=== PATIENT | male | born 1965 | race Caucasian/White ===

== ENCOUNTER 2018-02-13 10:46 | Observation (INO) | payer BC ==
[2018-02-13] MEDS ORDERED: Sodium Chloride 0.9% 1,000 ML IV STA (11:22)
[2018-02-13] MEDS ORDERED: HYDROmorphone 1 MG/ML Syringe IVPUSH ONE (11:23)
--- NOTE | 2018-02-13 11:30 | EDM.PDOC ---
ED HPI GENERAL MEDICAL PROBLEM - General Chief Complaint: Lower Extremity Injury/Pain Stated Complaint: LEFT LEG SWELLING Time Seen by Provider: 02/13/18 11:22 Source of Information: Reports: Patient History Limitations: Reports: No Limitations - History of Present Illness INITIAL COMMENTS - FREE TEXT/NARRATIVE: Patient is a 52-year-old gentleman who presents to the emergency department this morning with a complaint of left lower extremity pain and chronic diarrhea. Patient states that he initially was diagnosed with cellulitis of left lower extremity 1 month ago and was started on antibiotics. Patient was found to have C. difficile on February 08. He was then started on vancomycin. Patient states that he chronic discomfort of left lower extremity and diarrhea is persistent, and he feels extremely weak. He is a [facility] Patient. Patient denies fever, chest pain, shortness of breath,, stiff neck, out of country travel, or any change in medication other than recent vancomycin initiation. 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 Patient is also has PICC line for another unknown antibiotic.) Left Lower Leg Pain Score (Numeric/FACES): 10 - Related Data Allergies Allergy/AdvReac Type Severity Reaction Status Date / Time No Known Drug Allergies Allergy Cannot Verified 02/13/18 11:07 Remember Home Meds: Home Meds Celecoxib 200 mg PO DAILY 02/13/18 [History] Furosemide 20 mg PO DAILY 02/13/18 [History] Lisinopril 20 mg PO DAILY 02/13/18 [History] Vancomycin HCl 125 mg PO QID 02/13/18 [History] oxyCODONE 10 mg PO ASDIRECTED 02/13/18 [History] traZODone HCl [Trazodone HCl] 50 mg PO QAM 02/13/18 [History] Review of Systems - Review of Systems Review Of Systems: ROS reveals no pertinent complaints other than HPI. Constitutional: Reports: Weakness Eyes: Reports: No Symptoms Ears: Reports: No Symptoms Nose: Reports: No Symptoms Mouth/Throat: Reports: No Symptoms Respiratory: Reports: No Symptoms Cardiovascular: Reports: No Symptoms GI/Abdominal: Reports: Diarrhea. Denies: Nausea, Vomiting Genitourinary: Reports: No Symptoms Musculoskeletal: Reports: Leg Pain (Left lower) Skin: Reports: Erythema (Persistent secondary to cellulitis of left lower extremity from knee distal to ankle.) Neurological: Reports: No Symptoms Psychiatric: Reports: No Symptoms ED EXAM, GENERAL - Physical Exam Exam: See Below Exam Limited By: No Limitations General Appearance: Alert, WD/WN, No Apparent Distress Nose: Normal Inspection, Normal Mucosa, No Blood Throat/Mouth: Normal Inspection, Normal Oropharynx, No Airway Compromise Head: Atraumatic, Normocephalic Neck: Normal Inspection Respiratory/Chest: No Respiratory Distress, Lungs Clear, Normal Breath Sounds, No Accessory Muscle Use, Chest Non-Tender Cardiovascular: Regular Rate, Rhythm GI/Abdominal: Normal Bowel Sounds, Soft, Tender (Mildly tender left lower quadrant. Patient states that this is not a new discomfort.) Back Exam: Normal Inspection. No: CVA Tenderness (L), CVA Tenderness (R) Extremities: Leg Pain, Other (Left lower extremity from just below knee distal to ankle and medial aspect color changes with resolving cellulitis.) Neurological: Alert, Oriented, Normal Cognition Psychiatric: Normal Affect, Normal Mood Skin Exam: Warm, Dry, Intact. No: Ecchymosis, Increased Warmth, Zoster-Like Rash Lymphatic: No Adenopathy Course - Vital Signs Last Recorded V/S: Last Vital Signs Temp 98.6 F 02/13/18 11:04 Pulse 66 02/13/18 11:04 Resp 18 02/13/18 11:04 BP 160/89 H 02/13/18 11:04 Pulse Ox 100 02/13/18 11:04 - Orders/Labs/Meds Orders: Active Orders 24 hr Category Date Time Status CBC WITH AUTO DIFF [HEME] Stat Lab 02/13/18 11:22 Ordered COMPREHENSIVE METABOLIC PN,CMP [CHEM] Stat Lab 02/13/18 11:22 Ordered HYDROmorphone [Dilaudid] Med 02/13/18 11:23 Once 0.5 mg IVPUSH ONETIME ONE Sodium Chloride 0.9% [Normal Saline] 1,000 ml Med 02/13/18 11:22 Ordered IV .BOLUS Medication Orders Hydromorphone HCl (Dilaudid) 0.5 mg IVPUSH ONETIME ONE Stop: 02/13/18 11:24 Sodium Chloride (Normal Saline) 1,000 mls @ 1,000 mls/hr IV .BOLUS STA Stop: 02/13/18 12:21 Meds: Medications Generic Name Dose Route Start Last Admin Trade Name Adelaide PRN Reason Stop Dose Admin Hydromorphone HCl 0.5 mg 02/13/18 11:23 Dilaudid IVPUSH 02/13/18 11:24 ONETIME ONE Sodium Chloride 1,000 mls @ 1,000 mls/hr 02/13/18 11:22 Normal Saline IV 02/13/18 12:21 .BOLUS STA - Re-Assessments/Exams Free Text/Narrative Re-Assessment/Exam: 02/13/18 12:27 Patient afebrile, nontoxic appearing, vital signs stable. Pain controlled. Discussed case with Mary Jansen, nurse practitioner, and patient will be admitted for observation to [facility] and followed Departure - Departure Time of Disposition: 12:28 Disposition: Refer to Observation Condition: Fair Clinical Impression: Hyperglycemia, Dehydration, C. difficile diarrhea - Discharge Information Referrals: Jacek Colunga PA-C [Primary Care Provider] - - My Orders Last 24 Hours: My Active Orders 02/13/18 11:22 CBC WITH AUTO DIFF [HEME] Stat COMPREHENSIVE METABOLIC PN,CMP [CHEM] Stat Sodium Chloride 0.9% [Normal Saline] 1,000 ml IV .BOLUS 02/13/18 11:23 HYDROmorphone [Dilaudid] 0.5 mg IVPUSH ONETIME ONE - Assessment/Plan Last 24 Hours: My Active Orders 02/13/18 11:22 CBC WITH AUTO DIFF [HEME] Stat COMPREHENSIVE METABOLIC PN,CMP [CHEM] Stat Sodium Chloride 0.9% [Normal Saline] 1,000 ml IV .BOLUS 02/13/18 11:23 HYDROmorphone [Dilaudid] 0.5 mg IVPUSH ONETIME ONE Assessment:: Hyperglycemia, dehydration, C. difficile Plan: Admit observation for [place]
[2018-02-13 12:16] LABS: CHLORIDE,CL 99 mmol/L (98-115); SODIUM,NA 133 mmol/L (136-145)
[2018-02-13] MEDS ORDERED: Sodium Chloride 0.9% 1,000 ML IV ONE (12:24)
[2018-02-13] MEDS ORDERED: Acetaminophen 500 MG Tab PO PRN (13:44)
[2018-02-13] MEDS ORDERED: Ibuprofen 400 MG Tab PO PRN (13:56)
--- NOTE | 2018-02-13 14:07 | PCM.HP ---
H&P History of Present Illness - General Date of Service: 02/13/18 Admit Problem/Dx: Admission Diagnosis/Problem Admission Diagnosis/Problem Hyperglycemia Source of Information: Patient, Old Records, Provider, RN History Limitations: Reports: No Limitations Left Lower Leg Pain Score (Numeric/FACES): 7 - Related Data Allergies/Adverse Reactions: Allergies Allergy/AdvReac Type Severity Reaction Status Date / Time No Known Drug Allergies Allergy Cannot Verified 02/13/18 11:07 Remember Home Medications: Home Meds Celecoxib 200 mg PO DAILY 02/13/18 [History] Furosemide 20 mg PO DAILY 02/13/18 [History] Lisinopril 20 mg PO DAILY 02/13/18 [History] Vancomycin HCl 125 mg PO QID 02/13/18 [History] oxyCODONE 10 mg PO ASDIRECTED 02/13/18 [History] traZODone HCl [Trazodone HCl] 50 mg PO QAM 02/13/18 [History] Past Medical History HEENT History: Reports: Impaired Vision Cardiovascular History: Reports: Hypertension Gastrointestinal History: Reports: Chronic Diarrhea Endocrine/Metabolic History: Reports: Diabetes, Type I - Infectious Disease History Infectious Disease History: Reports: C-Difficile, Chicken Pox - Past Surgical History HEENT Surgical History: Reports: Tonsillectomy Cardiovascular Surgical History: Reports: None GI Surgical History: Reports: Colonoscopy Endocrine Surgical History: Reports: None Musculoskeletal Surgical History: Reports: Arthroscopic Knee Social & Family History - Family History Cardiac: Reports: Hypertension (Father) Neurological: Reports: CVA (Maternal Grandmother) Endocrine/Metabolic: Reports: Diabetes, type II (Brother) Oncologic: Reports: Lung, Other (See Below) Other Oncologic Family History: mother - Tobacco Use Smoking Status *Q: Current Every Day Smoker Years of Tobacco use: 40 Packs/Tins Daily: 0.5 Used Tobacco, but Quit: No Second Hand Smoke Exposure: Yes - Caffeine Use Caffeine Use: Reports: Soda Other Caffeine Use: diet - Recreational Drug Use Recreational Drug Use: No - Living Situation & Occupation Living situation: Reports: , Other (Lives with son) Occupation: Employed H&P Review of Systems - Review of Systems: Review Of Systems: See Below General: Reports: Chills (always cold). Denies: Fever HEENT: Reports: Glasses. Denies: Ear Pain, Headaches, Sinus Congestion, Sore Throat Pulmonary: Reports: Cough (occasional). Denies: Shortness of Breath Cardiovascular: Denies: Chest Pain, Edema, Lightheadedness Gastrointestinal: Reports: Diarrhea (15 liquid stools with no stool consistency in last 12 hours). Denies: Abdominal Pain, Constipation, Decreased Appetite, Nausea, Vomiting Genitourinary: Reports: No Symptoms Musculoskeletal: Reports: Leg Pain (Left lower leg pain) Skin: Reports: Erythema (Improved). Denies: Wound Psychiatric: Denies: Agitation, Cravings Neurological: Denies: Dizziness, Headache Exam - Exam Exam: See Below - Vital Signs Vital Signs: Last Vital Signs Temp 98.6 F 02/13/18 12:30 Pulse 57 L 02/13/18 12:30 Resp 18 02/13/18 12:30 BP 165/94 H 02/13/18 12:30 Pulse Ox 100 02/13/18 12:30 Weight: 107 lb 3.2 oz - Exam Quality Assessment: DVT Prophylaxis (Score of 4-lovenox). No: Supplemental Oxygen, Urinary Catheter General: Alert, Oriented, Cooperative, Other (No distress) HEENT: Conjunctiva Clear, Hearing Intact, Mucosa Moist & [place], Posterior Pharynx Clear, TMs Clear, Glasses Neck: Supple, Trachea Midline Lungs: Clear to Auscultation, Normal Respiratory Effort Cardiovascular: Regular Rate, Regular Rhythm, Normal S1, Normal S2 GI/Abdominal Exam: Soft, Non-Tender, No Distention, No Mass, Abnormal Bowel Sounds (hypoactive) Extremities: No Pedal Edema, Leg Pain (Left lower leg pain with palpation of calf and trammell, active ROM), Redness (left lower extremity krysten red in color, no open wounds or drainage). No: Increased Warmth Skin: Warm, Dry, Intact Neurological: Normal Speech Neuro Extensive - Mental Status: Alert, Oriented x3, Normal Mood/Affect Psychiatric: Alert, Normal Affect, Normal Mood. No: Anxious, Agitated - Patient Data Lab Results Last 24 hrs: Laboratory Results - last 24 hr 02/13/18 02/13/18 02/13/18 Range/Units 11:35 11:35 11:35 WBC 3.6 L (5.0-10.0) 10^3/uL RBC 3.53 L (4.50-6.00) 10^6/uL Hgb 11.7 L (13.0-17.0) g/dL Hct 35.9 L (40.0-52.0) % MCV 101.5 H (82.0-92.0) fL MCH 33.0 H (27.0-31.0) pg MCHC 32.5 (32.0-36.0) g/dL RDW 14.4 (11.5-14.5) % Plt Count 464 H (150-300) 10^3/uL MPV 6.5 L (7.4-10.4) fL Neut % (Auto) 39.6 L (50.0-70.0) % Lymph % (Auto) 42.6 H (20.0-40.0) % [place] % (Auto) 12.9 H (2.0-8.0) % Eos % (Auto) 3.6 H (1.0-3.0) % Baso % (Auto) 1.3 H (0.0-1.0) % Neut # (Auto) 1.4 L (2.5-7.0) 10^3/uL Lymph # (Auto) 1.6 (1.0-4.0) 10^3/uL [place] # (Auto) 0.5 (0.1-0.8) 10^3/uL Eos # (Auto) 0.1 (0.1-0.3) 10^3/uL Baso # (Auto) 0.0 (0.0-0.1) 10^3/uL Sodium 133 L (136-145) mmol/L Potassium 5.2 (3.3-5.3) mmol/L Chloride 99 (98-115) mmol/L Carbon Dioxide 19.2 L (21.0-32.0) mmol/L BUN 12 (6-25) mg/dL Creatinine 0.53 (0.51-1.17) mg/dL Est Cr Clr Drug Dosing 102.22 mL/min Estimated GFR (MDRD) > 60 mL/min Glucose 439 H (70-110) mg/dL POC Glucose (74-106) mg/dl Calcium 8.4 L (8.7-10.3) mg/dL Magnesium 1.5 L (1.8-2.4) mg/dL Total Bilirubin 0.3 (0.2-1.0) mg/dL AST 119 H (15-37) U/L ALT 82 H (12-78) U/L Alkaline Phosphatase 115 (46-116) IU/L C-Reactive Protein (0.0-0.9) mg/dL Total Protein 7.9 (6.4-8.2) g/dL Albumin 3.12 (3.00-4.80) g/dL 02/13/18 02/13/18 Range/Units 11:35 13:15 WBC (5.0-10.0) 10^3/uL RBC (4.50-6.00) 10^6/uL Hgb (13.0-17.0) g/dL Hct (40.0-52.0) % MCV (82.0-92.0) fL MCH (27.0-31.0) pg MCHC (32.0-36.0) g/dL RDW (11.5-14.5) % Plt Count (150-300) 10^3/uL MPV (7.4-10.4) fL Neut % (Auto) (50.0-70.0) % Lymph % (Auto) (20.0-40.0) % [place] % (Auto) (2.0-8.0) % Eos % (Auto) (1.0-3.0) % Baso % (Auto) (0.0-1.0) % Neut # (Auto) (2.5-7.0) 10^3/uL Lymph # (Auto) (1.0-4.0) 10^3/uL [place] # (Auto) (0.1-0.8) 10^3/uL Eos # (Auto) (0.1-0.3) 10^3/uL Baso # (Auto) (0.0-0.1) 10^3/uL Sodium (136-145) mmol/L Potassium (3.3-5.3) mmol/L Chloride (98-115) mmol/L Carbon Dioxide (21.0-32.0) mmol/L BUN (6-25) mg/dL Creatinine (0.51-1.17) mg/dL Est Cr Clr Drug Dosing mL/min Estimated GFR (MDRD) mL/min Glucose (70-110) mg/dL POC Glucose 373 H (74-106) mg/dl Calcium (8.7-10.3) mg/dL Magnesium (1.8-2.4) mg/dL Total Bilirubin (0.2-1.0) mg/dL AST (15-37) U/L ALT (12-78) U/L Alkaline Phosphatase (46-116) IU/L C-Reactive Protein < 0.2 (0.0-0.9) mg/dL Total Protein (6.4-8.2) g/dL Albumin (3.00-4.80) g/dL Result Diagrams: 02/13/18 11:35 02/13/18 11:35 Problem List Initiated/Reviewed/Updated: Yes Orders Last 24hrs: Active Orders 24 hr Category Date Time Status Patient Status [ADT] Routine ADT 02/13/18 12:24 Ordered Accu Check [Blood Glucose Check, Bedside] [RC] Care 02/13/18 13:47 Active QIDACANDBED Intake and Output Strict [RC] ASDIRECTED Care 02/13/18 13:45 Active Oxygen Therapy [RC] PRN Care 02/13/18 12:24 Active Up ad Georgie [RC] ASDIRECTED Care 02/13/18 13:45 Active VTE/DVT Education [RC] PER UNIT ROUTINE Care 02/13/18 12:24 Active Vital Signs [RC] 0300,0700,1100,1500,1900,2300 Care 02/13/18 12:24 Active CDIFF TOX A+B [OP] Routine Lab 02/13/18 13:14 Ordered LACTIC ACID [CHEM] Routine Lab 02/13/18 13:40 Received URINALYSIS W/MICROSCOPIC [UA W/MICROSCOPIC] [URIN] Stat Lab 02/13/18 12:26 Ordered Acetaminophen [Tylenol Extra Strength] Med 02/13/18 13:44 Active 1,000 mg PO Q6H PRN B.Bif/B.Long/L.Acidoph/L.Rhamn [Multi-Betina Plus] Med 02/13/18 14:00 Ordered 1 cap PO DAILY Celecoxib [CeleBREX] Med 02/14/18 09:00 Active 200 mg PO DAILY Ibuprofen [Motrin] Med 02/13/18 13:56 Ordered 800 mg PO Q8H PRN Insulin Aspart [NovoLOG] Med 02/13/18 18:00 Active See Protocol SUBCUT WITHMEALSANDBED Insulin Detemir [Levemir] Med 02/14/18 09:00 Ordered 32 unit SUBCUT DAILY Lisinopril [Prinivil] Med 02/14/18 09:00 Active 20 mg PO DAILY Magnesium Oxide Med 02/13/18 14:00 Ordered 500 mg PO BID Piperacillin/Tazobactam [Zosyn] 4.5 gm Med 02/13/18 14:00 Ordered Sodium Chloride 0.9% [Normal Saline] 100 ml IV Q8H Sodium Chloride 0.9% @ 100 MLS/HR(1,000ml) Med 02/13/18 14:15 Ordered Sodium Chloride 0.9% [Normal Saline] 1,000 ml IV ASDIRECTED Vancomycin HCl [Vancomycin HCl] Med 02/13/18 17:00 Ordered 125 mg PO QID oxyCODONE [oxyCODONE] Med 02/13/18 13:55 Ordered 10 mg PO QID PRN traZODone Med 02/13/18 21:00 Ordered 50 mg PO BEDTIME Code Status [Resuscitation Status] Routine Resus Stat 02/13/18 13:46 Ordered Medication Orders Acetaminophen (Tylenol Extra Strength) 1,000 mg PO Q6H PRN PRN Reason: Pain Celecoxib (Celebrex) 200 mg PO DAILY [facility] Piperacillin Sod/Tazobactam (Sod 4.5 gm/ Sodium Chloride) 100 mls @ 200 mls/hr IV Q8H [facility] Ibuprofen (Motrin) 800 mg PO Q8H PRN PRN Reason: Pain Insulin Aspart (Novolog) 0 unit SUBCUT WITHMEALSANDBED [facility]; Protocol Insulin Detemir (Levemir) 32 unit SUBCUT DAILY [facility] Lactobacillus Acidophilus/Rhamnosus (Multi-Betina Plus) 1 cap PO DAILY [facility] Lisinopril (Prinivil) 20 mg PO DAILY [facility] Magnesium Oxide (Magnesium Oxide) 500 mg PO BID [facility] Non-Formulary Medication (Vancomycin Hcl [Vancomycin Hcl]) 125 mg PO QID [facility] Non-Formulary Medication (Oxycodone [Oxycodone]) 10 mg PO QID PRN PRN Reason: severe pain Trazodone HCl (Trazodone) 50 mg PO BEDTIME [facility] Assessment/Plan Comment:: HPI: This is a 52 year old male who presented to the ED with concerns of diarrhea and left lower leg pain. Upon review of the [facility] chart, patient was hospitalized from 01/14/18-01/26/18 and 02/05/18-02/08/18 for left lower leg cellulitis with the first admission noting sepsis. Patient had MRI of the left lower extremity done on 01/14/18 that showed a combination of fasciitis, cellulitis, and myositis, but no evidence of osteomyelitis. On 02/06/18 patient had ultrasound of the extremity which showed persistent intrafascial collection similar to previous examinations. Patient notes the swelling and redness has improved, however the pain has not. He has taken tylenol at home without relief. The patient has a PICC line in place and is having Zosyn 4.5 gm every 8 hours IV for a total of 28 days for treatment. In regards to the diarrhea, patient was noted to have a positive Clostridium difficile infection on . He has been taking oral vancomyin QID at home. Pertinent ED workup: -Labs: WBC 3.6, Sodium 133, Potassium 5.2, Creatinine 0.53, Glucose 439, AST 119 , ALT 82; UA order-uncollected at this time -IV dilaudid 0.5 mg x 1 - patient reports no relief, pain 07/21 -2 NS 1 liter boluses given Further workup: -CRP <0.2, Mg 1.5, Lactic acid 3.2 -Repeat Cdiff sample ordered Primary Assessment/Plan: Hyperglycemia in type 2 versus type 1 diabetic. Epic chart notes type 1, however patient states he is a type 2. Accuchecks QID. Glucose down to 373. Continue lantus 32 units daily. Add novolog low dose sliding scale. ADA high protein diet. Obtain urine sample. Clostridium difficile infection. Repeat Cdiff when able. Continue vancomycin, however this will have to be changed to IV as no oral in stock and patient did not bring his with. NS at 100 mL/hr. Repeat BMP in AM. Probiotic daily. Left lower leg cellulitis, improving. Lactic acid 3.6--up slightly from 02/06/18 at 2.0, CRP <0.2. Pictures reviewed in Epic chart from last hospitalization and there is great improvement noted today. Continue with zosyn 4.5 gm IV every 8 hours per ID recommendation. Patient noting significant pain and no relief from dilaudid in ER. Review of Epic note, notes that he was given tylenol and ibuprofen while hospitalized and providers should be careful in prescribing opioids. Drug seeking behavior. Nurse called myself into patient room as he was refusing tylenol, ibuprofen, and oxycodone as ordered. Reviewed with patient that he must try these medications for pain as he is not able to be discharged with an IV pain medication. Patient resistant, but eventually agreeable to trying oxycodone 10 mg po. [place] PDMP reviewed and shows patient did last receive oxycodone 10 mg per his PCP on 02/02/18, however he states he has never taken any. Hypomagnesemia. Mg 1.5. Magnesium oxide 500 mg po BID. Repeat level in AM. Secondary Assessment/Plan: Hypertension. Continue lisinopril. Hyperlipidemia. Not on statin. Tobacco abuse. Patient smokes 1/2 ppd. Declines nicotine patch at this time. Chronic pancreatitis. History of alcohol-induced pancreatitis. Reports minimal alcohol intake. Will observe for signs of DTs. Elevated LFTs. AST 119 and ALT 82, however these values are improved from 2017. Severe protein-calorie malnutrition. High protein diet ordered. Insomnia. Continue trazodone, however take at bedtime instead of the AM. Iron deficiency anemia. Hgb 11.7. Previous workup shows iron 36, TIBC 174, and ferritin 508. Patient not on supplementation. Will continue to monitor as this is improved from discharge hemoglobin of 9.3 on 02/08/18. DVT prophylaxis. Score of 4. Lovenox 30 mg subQ daily given weight. Overall treatment plan: Re-hydrate patient with IV fluids and continue to monitor blood sugars. Patient may be able to be discharged this evening or most definitely in the AM.
[2018-02-13] MEDS: Magnesium Oxide 500 MG Tab PO SCH ×2 (14:15→21:41)
[2018-02-13] MEDS: B.Bifidum/B.Longum/L.Acidophilus/L.Rhamnosus (Probiotic) Cap PO SCH (14:15)
[2018-02-13] MEDS: oxyCODONE 5 MG Tab PO PRN ×2 (14:17→20:24)
[2018-02-13] MEDS ORDERED: Enoxaparin 30 MG/0.3 ML Syringe SUBCUT SCH (14:30)
[2018-02-13] MEDS: Sodium Chloride 0.9% 1,000 ML IV SCH (15:29)
[2018-02-13] MEDS: Piperacillin/Tazobactam 4.5 GM in Sodium Chloride 0.9% 100 ML IV SCH ×2 (15:54→21:24)
[2018-02-13] MEDS: Vancomycin 1 GM SDV PO SCH ×2 (17:11→21:24)
[2018-02-13] MEDS: Insulin Aspart 100 Units/ML 3 ML Pen SUBCUT SCH ×2 (18:18→21:42)
[2018-02-13] MEDS: traZODone 50 MG Tab PO SCH (21:41)
[2018-02-14] MEDS: oxyCODONE 5 MG Tab PO PRN ×2 (02:31→08:23)
[2018-02-14] MEDS: Sodium Chloride 0.9% 1,000 ML IV SCH (02:36)
[2018-02-14] MEDS: Piperacillin/Tazobactam 4.5 GM in Sodium Chloride 0.9% 100 ML IV SCH (05:24)
[2018-02-14] MEDS: Insulin Aspart 100 Units/ML 3 ML Pen SUBCUT SCH (08:12)
[2018-02-14] MEDS: Vancomycin 1 GM SDV PO SCH (08:14)
[2018-02-14] MEDS: Magnesium Oxide 500 MG Tab PO SCH (08:15)
[2018-02-14] MEDS: B.Bifidum/B.Longum/L.Acidophilus/L.Rhamnosus (Probiotic) Cap PO SCH (08:16)
[2018-02-14 08:49] LABS: CHLORIDE,CL 104 mmol/L (98-115); SODIUM,NA 135 mmol/L (136-145)
[2018-02-14] MEDS ORDERED: Celecoxib 100 MG Cap PO SCH (09:00)
[2018-02-14] MEDS ORDERED: Lisinopril 20 MG Tab PO SCH (09:00)
[2018-02-14] MEDS ORDERED: Insulin Detemir 100 Units/ML 3 ML Pen SUBCUT SCH (09:00)
--- NOTE | 2018-02-14 09:23 | PCM.DCSUM1 ---
Discharge Summary - Hospital Course Brief History: This is a 52 year old male who presented to the ED with concerns of diarrhea and left lower leg pain. Upon review of the [facility] chart, patient was hospitalized from 01/14/18-02/05/18 and 02/05/18-02/08/18 for left lower leg cellulitis with the first admission noting sepsis. Patient had MRI of left extremity done on 01/14/18 that showed a combination of fasciitis, cellulitis, and myositis without evidence of osteomyelitis. The patient has a PICC line in place and is receiving Zosyn 4.5 gm IV every 8 hours for a total of 28 days for treatment of this. The patient had tried tylenol at home without relief in pain. The patient was found to have a positive Cdiff infection on 02/08/18 and had been on oral vancomycin at home. He reported 15 loose stools in the previous 12 hours prior to admission. He was found to have hyperglycemia and clinical dehdyration in the ED and was subsequently admitted for IV fluids and glucose monitoring. - Discharge Data Discharge Date: 02/14/18 Discharge Disposition: Home, Self-Care 01 Condition: Good - Patient Instructions Diet: Diabetic Diet Activity: As Tolerated Driving: May Drive Today Showering/Bathing: May Shower Notify Provider of: Fever, Increased Pain, Swelling and Redness, Drainage Other/Special Instructions: Continue to monitor your blood sugars four times a day and use the novolog sliding scale I have given you to correct high readings. Finish 7 days total of Vancomycin as your repeat stool sample was negative. Tylenol 1000 mg every 6 hours as needed for pain AND/OR Ibuprofen 800 mg three times a day as needed for pain. Continue to take a probiotic once a day as before. - Discharge Plan Prescriptions/Med Rec: Magnesium Oxide 500 mg PO TID #90 tablet traZODone HCl [Trazodone HCl] 100 mg PO BEDTIME #60 tablet Home Medications: Home Meds Celecoxib 200 mg PO DAILY 02/13/18 [History] Furosemide 20 mg PO DAILY 02/13/18 [History] Lisinopril 20 mg PO DAILY 02/13/18 [History] Acetaminophen [Tylenol Extra Strength] 1,000 mg PO Q6H PRN tablet 02/14/18 [Rx] Insulin Aspart [NovoLOG] See Protocol SUBCUT WITHMEALSANDBED pen 02/14/18 [Rx] Insulin Detemir [Levemir] 32 unit SUBCUT DAILY pen 02/14/18 [Rx] Magnesium Oxide 500 mg PO TID #90 tablet 02/14/18 [Rx] Piperacillin/Tazobactam [Zosyn] 4.5 gm IV Q8H vial 02/14/18 [Rx] Vancomycin HCl 125 mg PO QID #0 02/14/18 [Rx] traZODone HCl [Trazodone HCl] 100 mg PO BEDTIME #60 tablet 02/14/18 [Rx] Referrals: Jacek Colunga PA-C [Primary Care Provider] - 02/17/18 - Discharge Summary/Plan Comment DC Time >30 min.: No Discharge Summary/Plan Comment: Date of admission 02/13/18 Date of discharge: 02/14/18 Admitting diagnosis: Primary: Hyperglycemia in type 2 diabetic on insulin, Cdiff infection with clinical dehydration, Left lower leg cellulitis with pain, Hypomagnesemia, Drug- seeking behavior Secondary: Hypertension, Hyperlipidemia, Tobacco abuse, Chronic pancreatitis , History of alcohol-induced pancreatitis, Elevated LFTs, Severe protein- calorie malnutrition, Insomnia, Iron deficiency anemia Final diagnosis: Primary; Hyperglycemia in type 2 diabetic on insulin, improving; Cdiff infection, resolved; Clinical dehydration, resolved; Left lower leg cellulitis, resolving; Left lower leg pain, unchanged; Hypomagnesemia, stable; Drug-seeking behavior Secondary; Hypertension, Hyperlipidemia, Tobacco abuse, Chronic pancreatitis , History of alcohol-induced pancreatitis, Elevated LFTs, Severe protein- calorie malnutrition, Insomnia, Iron deficiency anemia Procedures performed: None Hospital Course: The patient had an uneventful hospital course that went as expected. The patient remained afebrile and hemodynamically stable throughout his stay. He was given 2 one liter boluses of normal saline and then continued on NS at 100 mL/hr. He was able to drink and eat without incident. The patient's blood sugars were monitored QID and corrected with insulin. Glucoses after admission include 373, 433, 485, and 275. A1c 9.7. He was given his home lantus dose as well. UA negative for ketones. The patient was found to have hypomagnesemia and was given oral replacement of this. The patient was continued on vancomycin, however this had to be changed to IV as pills were not available. He had only 1 soft stool during his stay, which was evaluated for Cdiff infection and this was found to be negative. In regards to his left lower leg cellulitis and pain, the patient was continued on IV Zosyn at 4.5 gm every 8 hours per ID. Patient had been given dilaudid 0.5 mg IV x 1 in the ER and reported no relief in symptoms. He was continued on celebrex 200 mg daily. Patient was offered tylenol which he refused. Patient was offered ibuprofen and had no relief. He was offered oxycodone which he used 2 tablets and reported no relief. He frequently was asking for high dose pain medications. Discussion held with patient that cellulitis infection was improving so pain should be as well. Discussed with patient that evidence-based medicine does not suggest narcotic pain medications for cellulitis. On the day of discharge, patient was questioned further about leg pain and he denies symptoms of claudication, however given his smoking history it may be worthwhile for him to have exercise ABIs performed for further evaluation. The patient also requesting medication for sleep. Patient's PCP had prescribed ambien recently, however patient states he doesn't believe he tried this. I have suggested trying an increase in trazodone to 100 mg at bedtime and patient agreeable to this. New medications on discharge: None New changes to home medications on discharge: -Continue vancomycin 125 mg po QID for a total of 1 week instead of 14 days -Discontinue oxycodone-never started this at home -Increase trazodone to 100 mg po at bedtime -Increase magnesium oxide to 500 mg po TID -Change home novolog subQ to follow medium dose sliding scale as provided Regular home medications on discharge: -Celebrex 200 mg po daily -Lisinopril 20 mg po daily -Lasix 20 mg po daily -Zosyn 4.8 mg IV every 8 hours for total of 28 days per ID -Lantus 32 units subQ daily -Tylenol 1000 mg po every 6 hours PRN -Ibuprofen 800 mg po every 8 hours PRN -Probiotic 1 capsule po daily Condition, Treatment, & Final Disposition: The patient is in stable condition at the time of discharge. He will be discharged home with his friend. He is to see BRENDA Toussaint in the [facility] on Thursday or Thursday this week. Considerations at follow-up would include repeat magnesium level to ensure stability, monitoring stool output as repeat Cdiff was negative, ensuring sugars are normalizing with novolog medium dose sliding scale. May also consider referral to vascular for further evaluation of leg pain. - General Info Date of Service: 02/14/18 Functional Status: Reports: Tolerating Diet, Ambulating, Urinating. Denies: Pain Controlled - Review of Systems General: Denies: Fever, Weakness, Chills HEENT: Denies: Headaches Pulmonary: Denies: Shortness of Breath Cardiovascular: Denies: Chest Pain, Edema Gastrointestinal: Denies: Abdominal Pain, Decreased Appetite (increased appetite and thirst), Diarrhea, Nausea, Vomiting Genitourinary: Reports: No Symptoms Musculoskeletal: Reports: Leg Pain (left lower leg pain) Skin: Reports: Dryness Neurological: Denies: Headache Psychiatric: Reports: No Symptoms - Patient Data Vitals - Most Recent: Last Vital Signs Temp 97.9 F 02/14/18 06:24 Pulse 54 L 02/14/18 06:24 Resp 18 02/14/18 06:24 BP 129/87 02/14/18 08:15 Pulse Ox 99 02/14/18 06:24 Weight - Most Recent: 107 lb 3.2 oz I&O - Last 24 hours: Intake & Output 02/13/18 02/14/18 02/14/18 22:59 06:59 14:59 Intake Total 950 2504 Output Total 450 700 Balance 500 1804 Lab Results - Last 24 hrs: Laboratory Results - last 24 hr 02/13/18 02/13/18 02/13/18 Range/Units 11:35 11:35 11:35 WBC 3.6 L (5.0-10.0) 10^3/uL RBC 3.53 L (4.50-6.00) 10^6/uL Hgb 11.7 L (13.0-17.0) g/dL Hct 35.9 L (40.0-52.0) % MCV 101.5 H (82.0-92.0) fL MCH 33.0 H (27.0-31.0) pg MCHC 32.5 (32.0-36.0) g/dL RDW 14.4 (11.5-14.5) % Plt Count 464 H (150-300) 10^3/uL MPV 6.5 L (7.4-10.4) fL Neut % (Auto) 39.6 L (50.0-70.0) % Lymph % (Auto) 42.6 H (20.0-40.0) % [place] % (Auto) 12.9 H (2.0-8.0) % Eos % (Auto) 3.6 H (1.0-3.0) % Baso % (Auto) 1.3 H (0.0-1.0) % Neut # (Auto) 1.4 L (2.5-7.0) 10^3/uL Lymph # (Auto) 1.6 (1.0-4.0) 10^3/uL [place] # (Auto) 0.5 (0.1-0.8) 10^3/uL Eos # (Auto) 0.1 (0.1-0.3) 10^3/uL Baso # (Auto) 0.0 (0.0-0.1) 10^3/uL Sodium 133 L (136-145) mmol/L Potassium 5.2 (3.3-5.3) mmol/L Chloride 99 (98-115) mmol/L Carbon Dioxide 19.2 L (21.0-32.0) mmol/L BUN 12 (6-25) mg/dL Creatinine 0.53 (0.51-1.17) mg/dL Est Cr Clr Drug Dosing 102.22 mL/min Estimated GFR (MDRD) > 60 mL/min Glucose 439 H (70-110) mg/dL POC Glucose (74-106) mg/dl Hemoglobin A1c (4.3-5.7) % Lactic Acid (0.4-2.0) mmol/L Calcium 8.4 L (8.7-10.3) mg/dL Magnesium 1.5 L (1.8-2.4) mg/dL Total Bilirubin 0.3 (0.2-1.0) mg/dL AST 119 H (15-37) U/L ALT 82 H (12-78) U/L Alkaline Phosphatase 115 (46-116) IU/L C-Reactive Protein (0.0-0.9) mg/dL Total Protein 7.9 (6.4-8.2) g/dL Albumin 3.12 (3.00-4.80) g/dL Specimen Type Urine Color (YELLOW) Urine Appearance (CLEAR) Urine pH (5.0-9.0) Ur Specific Stigler (1.005-1.030) Urine Protein (NEGATIVE) mg/dL Urine Glucose (UA) (NEGATIVE) mg/dL Urine Ketones (NEGATIVE) mg/dL Urine Occult Blood (NEGATIVE) Urine Nitrite (NEGATIVE) Urine Bilirubin (NEGATIVE) Urine Urobilinogen (0.2-1.0) E.U./dL Ur Leukocyte Esterase (NEGATIVE) Urine RBC /HPF Urine WBC /HPF Ur Epithelial Cells /LPF Urine Bacteria (NONE TO FEW) /HPF Hyaline Casts (NEGATIVE) /LPF Urine Mucus (NEGATIVE) /LPF 02/13/18 02/13/18 02/13/18 Range/Units 11:35 13:15 13:40 WBC (5.0-10.0) 10^3/uL RBC (4.50-6.00) 10^6/uL Hgb (13.0-17.0) g/dL Hct (40.0-52.0) % MCV (82.0-92.0) fL MCH (27.0-31.0) pg MCHC (32.0-36.0) g/dL RDW (11.5-14.5) % Plt Count (150-300) 10^3/uL MPV (7.4-10.4) fL Neut % (Auto) (50.0-70.0) % Lymph % (Auto) (20.0-40.0) % [place] % (Auto) (2.0-8.0) % Eos % (Auto) (1.0-3.0) % Baso % (Auto) (0.0-1.0) % Neut # (Auto) (2.5-7.0) 10^3/uL Lymph # (Auto) (1.0-4.0) 10^3/uL [place] # (Auto) (0.1-0.8) 10^3/uL Eos # (Auto) (0.1-0.3) 10^3/uL Baso # (Auto) (0.0-0.1) 10^3/uL Sodium (136-145) mmol/L Potassium (3.3-5.3) mmol/L Chloride (98-115) mmol/L Carbon Dioxide (21.0-32.0) mmol/L BUN (6-25) mg/dL Creatinine (0.51-1.17) mg/dL Est Cr Clr Drug Dosing mL/min Estimated GFR (MDRD) mL/min Glucose (70-110) mg/dL POC Glucose 373 H (74-106) mg/dl Hemoglobin A1c (4.3-5.7) % Lactic Acid 3.2 H (0.4-2.0) mmol/L Calcium (8.7-10.3) mg/dL Magnesium (1.8-2.4) mg/dL Total Bilirubin (0.2-1.0) mg/dL AST (15-37) U/L ALT (12-78) U/L Alkaline Phosphatase (46-116) IU/L C-Reactive Protein < 0.2 (0.0-0.9) mg/dL Total Protein (6.4-8.2) g/dL Albumin (3.00-4.80) g/dL Specimen Type Urine Color (YELLOW) Urine Appearance (CLEAR) Urine pH (5.0-9.0) Ur Specific Stigler (1.005-1.030) Urine Protein (NEGATIVE) mg/dL Urine Glucose (UA) (NEGATIVE) mg/dL Urine Ketones (NEGATIVE) mg/dL Urine Occult Blood (NEGATIVE) Urine Nitrite (NEGATIVE) Urine Bilirubin (NEGATIVE) Urine Urobilinogen (0.2-1.0) E.U./dL Ur Leukocyte Esterase (NEGATIVE) Urine RBC /HPF Urine WBC /HPF Ur Epithelial Cells /LPF Urine Bacteria (NONE TO FEW) /HPF Hyaline Casts (NEGATIVE) /LPF Urine Mucus (NEGATIVE) /LPF 02/13/18 02/13/18 02/13/18 Range/Units 17:27 17:30 21:23 WBC (5.0-10.0) 10^3/uL RBC (4.50-6.00) 10^6/uL Hgb (13.0-17.0) g/dL Hct (40.0-52.0) % MCV (82.0-92.0) fL MCH (27.0-31.0) pg MCHC (32.0-36.0) g/dL RDW (11.5-14.5) % Plt Count (150-300) 10^3/uL MPV (7.4-10.4) fL Neut % (Auto) (50.0-70.0) % Lymph % (Auto) (20.0-40.0) % [place] % (Auto) (2.0-8.0) % Eos % (Auto) (1.0-3.0) % Baso % (Auto) (0.0-1.0) % Neut # (Auto) (2.5-7.0) 10^3/uL Lymph # (Auto) (1.0-4.0) 10^3/uL [place] # (Auto) (0.1-0.8) 10^3/uL Eos # (Auto) (0.1-0.3) 10^3/uL Baso # (Auto) (0.0-0.1) 10^3/uL Sodium (136-145) mmol/L Potassium (3.3-5.3) mmol/L Chloride (98-115) mmol/L Carbon Dioxide (21.0-32.0) mmol/L BUN (6-25) mg/dL Creatinine (0.51-1.17) mg/dL Est Cr Clr Drug Dosing mL/min Estimated GFR (MDRD) mL/min Glucose (70-110) mg/dL POC Glucose 433 H 485 H (74-106) mg/dl Hemoglobin A1c (4.3-5.7) % Lactic Acid (0.4-2.0) mmol/L Calcium (8.7-10.3) mg/dL Magnesium (1.8-2.4) mg/dL Total Bilirubin (0.2-1.0) mg/dL AST (15-37) U/L ALT (12-78) U/L Alkaline Phosphatase (46-116) IU/L C-Reactive Protein (0.0-0.9) mg/dL Total Protein (6.4-8.2) g/dL Albumin (3.00-4.80) g/dL Specimen Type Urincc Urine Color Yellow (YELLOW) Urine Appearance Clear (CLEAR) Urine pH 5.0 (5.0-9.0) Ur Specific Stigler 1.020 (1.005-1.030) Urine Protein Negative (NEGATIVE) mg/dL Urine Glucose (UA) 500 H (NEGATIVE) mg/dL Urine Ketones Negative (NEGATIVE) mg/dL Urine Occult Blood Negative (NEGATIVE) Urine Nitrite Negative (NEGATIVE) Urine Bilirubin Negative (NEGATIVE) Urine Urobilinogen 0.2 (0.2-1.0) E.U./dL Ur Leukocyte Esterase Negative (NEGATIVE) Urine RBC 0-5 /HPF Urine WBC 0-5 /HPF Ur Epithelial Cells Rare /LPF Urine Bacteria Not seen (NONE TO FEW) /HPF Hyaline Casts Moderate H (NEGATIVE) /LPF Urine Mucus Moderate H (NEGATIVE) /LPF 02/14/18 02/14/18 02/14/18 Range/Units 04:25 07:19 07:33 WBC (5.0-10.0) 10^3/uL RBC (4.50-6.00) 10^6/uL Hgb (13.0-17.0) g/dL Hct (40.0-52.0) % MCV (82.0-92.0) fL MCH (27.0-31.0) pg MCHC (32.0-36.0) g/dL RDW (11.5-14.5) % Plt Count (150-300) 10^3/uL MPV (7.4-10.4) fL Neut % (Auto) (50.0-70.0) % Lymph % (Auto) (20.0-40.0) % [place] % (Auto) (2.0-8.0) % Eos % (Auto) (1.0-3.0) % Baso % (Auto) (0.0-1.0) % Neut # (Auto) (2.5-7.0) 10^3/uL Lymph # (Auto) (1.0-4.0) 10^3/uL [place] # (Auto) (0.1-0.8) 10^3/uL Eos # (Auto) (0.1-0.3) 10^3/uL Baso # (Auto) (0.0-0.1) 10^3/uL Sodium 135 L (136-145) mmol/L Potassium 5.1 (3.3-5.3) mmol/L Chloride 104 (98-115) mmol/L Carbon Dioxide 20.9 L (21.0-32.0) mmol/L BUN 15 (6-25) mg/dL Creatinine 0.54 (0.51-1.17) mg/dL Est Cr Clr Drug Dosing 107.56 mL/min Estimated GFR (MDRD) > 60 mL/min Glucose 311 H (70-110) mg/dL POC Glucose 322 H 275 H (74-106) mg/dl Hemoglobin A1c (4.3-5.7) % Lactic Acid (0.4-2.0) mmol/L Calcium 8.2 L (8.7-10.3) mg/dL Magnesium 1.4 L (1.8-2.4) mg/dL Total Bilirubin (0.2-1.0) mg/dL AST (15-37) U/L ALT (12-78) U/L Alkaline Phosphatase (46-116) IU/L C-Reactive Protein (0.0-0.9) mg/dL Total Protein (6.4-8.2) g/dL Albumin (3.00-4.80) g/dL Specimen Type Urine Color (YELLOW) Urine Appearance (CLEAR) Urine pH (5.0-9.0) Ur Specific Stigler (1.005-1.030) Urine Protein (NEGATIVE) mg/dL Urine Glucose (UA) (NEGATIVE) mg/dL Urine Ketones (NEGATIVE) mg/dL Urine Occult Blood (NEGATIVE) Urine Nitrite (NEGATIVE) Urine Bilirubin (NEGATIVE) Urine Urobilinogen (0.2-1.0) E.U./dL Ur Leukocyte Esterase (NEGATIVE) Urine RBC /HPF Urine WBC /HPF Ur Epithelial Cells /LPF Urine Bacteria (NONE TO FEW) /HPF Hyaline Casts (NEGATIVE) /LPF Urine Mucus (NEGATIVE) /LPF 02/14/18 Range/Units 07:33 WBC (5.0-10.0) 10^3/uL RBC (4.50-6.00) 10^6/uL Hgb (13.0-17.0) g/dL Hct (40.0-52.0) % MCV (82.0-92.0) fL MCH (27.0-31.0) pg MCHC (32.0-36.0) g/dL RDW (11.5-14.5) % Plt Count (150-300) 10^3/uL MPV (7.4-10.4) fL Neut % (Auto) (50.0-70.0) % Lymph % (Auto) (20.0-40.0) % [place] % (Auto) (2.0-8.0) % Eos % (Auto) (1.0-3.0) % Baso % (Auto) (0.0-1.0) % Neut # (Auto) (2.5-7.0) 10^3/uL Lymph # (Auto) (1.0-4.0) 10^3/uL [place] # (Auto) (0.1-0.8) 10^3/uL Eos # (Auto) (0.1-0.3) 10^3/uL Baso # (Auto) (0.0-0.1) 10^3/uL Sodium (136-145) mmol/L Potassium (3.3-5.3) mmol/L Chloride (98-115) mmol/L Carbon Dioxide (21.0-32.0) mmol/L BUN (6-25) mg/dL Creatinine (0.51-1.17) mg/dL Est Cr Clr Drug Dosing mL/min Estimated GFR (MDRD) mL/min Glucose (70-110) mg/dL POC Glucose (74-106) mg/dl Hemoglobin A1c 9.7 H (4.3-5.7) % Lactic Acid (0.4-2.0) mmol/L Calcium (8.7-10.3) mg/dL Magnesium (1.8-2.4) mg/dL Total Bilirubin (0.2-1.0) mg/dL AST (15-37) U/L ALT (12-78) U/L Alkaline Phosphatase (46-116) IU/L C-Reactive Protein (0.0-0.9) mg/dL Total Protein (6.4-8.2) g/dL Albumin (3.00-4.80) g/dL Specimen Type Urine Color (YELLOW) Urine Appearance (CLEAR) Urine pH (5.0-9.0) Ur Specific Stigler (1.005-1.030) Urine Protein (NEGATIVE) mg/dL Urine Glucose (UA) (NEGATIVE) mg/dL Urine Ketones (NEGATIVE) mg/dL Urine Occult Blood (NEGATIVE) Urine Nitrite (NEGATIVE) Urine Bilirubin (NEGATIVE) Urine Urobilinogen (0.2-1.0) E.U./dL Ur Leukocyte Esterase (NEGATIVE) Urine RBC /HPF Urine WBC /HPF Ur Epithelial Cells /LPF Urine Bacteria (NONE TO FEW) /HPF Hyaline Casts (NEGATIVE) /LPF Urine Mucus (NEGATIVE) /LPF EDIS Results - Last 24 hrs: Microbiology 02/13/18 20:00 Clostridium difficile Toxin A & B - Final Stool / Feces NEGATIVE CDIFF TOXIN Med Orders - Current: Current Medications Acetaminophen (Tylenol Extra Strength) 1,000 mg PO Q6H PRN PRN Reason: Pain Celecoxib (Celebrex) 200 mg PO DAILY [facility] Last Admin: 02/14/18 08:16 Dose: 200 mg Enoxaparin Sodium (Lovenox) 30 mg SUBCUT Q24H [facility] Last Admin: 02/13/18 15:24 Dose: 30 mg Piperacillin Sod/Tazobactam (Sod 4.5 gm/ Sodium Chloride) 100 mls @ 200 mls/hr IV Q8H [facility] Last Admin: 02/14/18 05:24 Dose: 200 mls/hr Sodium Chloride (Normal Saline) 1,000 mls @ 100 mls/hr IV ASDIRECTED [facility] Last Admin: 02/14/18 02:36 Dose: 100 mls/hr Ibuprofen (Motrin) 800 mg PO Q8H PRN PRN Reason: Pain Last Admin: 02/13/18 21:44 Dose: 800 mg Insulin Aspart (Novolog) 0 unit SUBCUT WITHMEALSANDBED [facility]; Protocol Last Admin: 02/14/18 08:12 Dose: 3 units Insulin Detemir (Levemir) 32 unit SUBCUT DAILY [facility] Last Admin: 02/14/18 08:10 Dose: 32 units Lactobacillus Acidophilus/Rhamnosus (Multi-Betina Plus) 1 cap PO DAILY [facility] Last Admin: 02/14/18 08:16 Dose: 1 cap Lisinopril (Prinivil) 20 mg PO DAILY [facility] Last Admin: 02/14/18 08:15 Dose: 20 mg Magnesium Oxide (Magnesium Oxide) 500 mg PO BID [facility] Last Admin: 02/14/18 08:15 Dose: 500 mg Oxycodone HCl (Oxycodone) 10 mg PO QID PRN PRN Reason: SEVERE PAIN Last Admin: 02/14/18 08:23 Dose: 10 mg Trazodone HCl (Trazodone) 50 mg PO BEDTIME [facility] Last Admin: 02/13/18 21:41 Dose: 50 mg Vancomycin HCl (Vancomycin) 0.125 gm PO QID ARTURO Last Admin: 02/14/18 08:14 Dose: 0.125 gm Discontinued Medications Hydromorphone HCl (Dilaudid) 0.5 mg IVPUSH ONETIME ONE Stop: 02/13/18 11:24 Last Admin: 02/13/18 11:34 Dose: 0.5 mg Sodium Chloride (Normal Saline) 1,000 mls @ 1,000 mls/hr IV .BOLUS STA Stop: 02/13/18 12:21 Last Admin: 02/13/18 11:34 Dose: 1,000 mls/hr Sodium Chloride (Normal Saline) 1,000 mls @ 999 mls/hr IV .BOLUS ONE Stop: 02/13/18 13:24 Last Admin: 02/13/18 12:35 Dose: 999 mls/hr - Exam Quality Assessment: Reports: DVT Prophylaxis (lovenox). Denies: Supplemental Oxygen, Urine Catheter, Skin Breakdown General: Reports: Alert, Oriented, Cooperative, No Acute Distress Lungs: Reports: Normal Respiratory Effort, Decreased Breath Sounds (throughout) Cardiovascular: Reports: Regular Rate, Regular Rhythm, No Murmurs GI/Abdominal Exam: Normal Bowel Sounds, Soft, Non-Tender, No Distention Extremities: No Pedal Edema, Leg Pain (left lower leg tenderness with palpation of calf area, krysten red in color with dry skin). No: Redness Skin: Reports: Warm, Dry, Intact Neurological: Reports: Normal Speech Psy/Mental Status: Reports: Alert, Normal Affect, Normal Mood
[2018-02-14] MEDS: traZODone 50 MG Tab PO SCH (11:17)
== END 2018-02-14 11:30 | disposition home or self-care (01) ==
LOC: KA.ED 10:46 → KA.MS 12:24
PROVIDERS: ADMIT Physician Assistant Surgical; ATTEND Nurse Practitioner Family
DX: E11.65 Type 2 diabetes mellitus with hyperglycemia (principal); E86.0 Dehydration; L03.116 Cellulitis of left lower limb; E83.42 Hypomagnesemia; I10 Essential (primary) hypertension; E78.5 Hyperlipidemia, unspecified; F17.210 Nicotine dependence, cigarettes, uncomplicated; K86.1 Other chronic pancreatitis; E43 Unspecified severe protein-calorie malnutrition; G47.00 Insomnia, unspecified; D50.9 Iron deficiency anemia, unspecified; Z79.899 Other long term (current) drug therapy; Z79.4 Long term (current) use of insulin
CPT/HCPCS: 36415; 80048; 80053; 81001; 82962; 83036; 83605; 83735; 85025; 86140; 87324; 96361; 96365; 96366; 96372; 96375; 99284; A9270; G0378; J1170; J1650; J1815; J2543; J3370; J7030; J7050; 96374